=== PATIENT | female | born 1955 | race Caucasian/White ===

== ENCOUNTER 2016-11-04 09:40 | Outpatient (CLI) | payer OTHER | END 2016-11-04 23:00 | LOC: RT SRH 09:40 | DX: R53.83 Other fatigue (principal); I10 Essential (primary) hypertension ==

== ENCOUNTER 2016-11-09 09:59 | Outpatient (CLI) | payer OTHER ==
--- NOTE | 2016-11-09 13:04 | DIAGNOSTIC IMAGING REPORT ---
PROCEDURE: CT ABDOMEN W/WO CONTRAST CLINICAL INDICATION: LIVER LESION, follow-up TECHNIQUE: 125 ml of Isovue 300 were injected intravenously and axial images were obtained through the entire abdomen with sagittal and coronal reformations. Delayed images obtained. COMPARISON: [facility] CT chest 09/17/2015. FINDINGS: Stable and 2.5 cm lesion in the dome of the liver posteriorly demonstrating low density on the noncontrast images, peripheral enhancement on the arterial phase and isodense on the delayed images. Findings are most consistent with a benign hemangioma. There are a few hypo enhancing lesions measuring 5 mm or less, indeterminate but likely benign. 1.6 cm right adrenal mass measures -15 [place] so noncontrast images. The gallbladder, pancreas, spleen, left adrenal gland and kidneys are normal. Moderate hiatal hernia. Tortuous aorta. Nonspecific bowel gas pattern. Minor left basilar scarring. No suspicious osseous lesions. IMPRESSION: 1. 2.5 cm benign hemangioma in the hepatic dome posteriorly corresponding to the previous CT finding. 2. 1.6 cm right adrenal adenoma 3. Moderate hiatal hernia All CT scans at this facility use dose modulation, iterative reconstruction, and/or weight-based dosing when appropriate to reduce radiation dose to as low as reasonably achievable.
--- NOTE | 2016-11-09 14:16 | DIAGNOSTIC IMAGING REPORT ---
PROCEDURE: 2-D M-mode echo Doppler. CLINICAL INDICATION: Shortness of breath TECHNIQUE: Standard 2-D M-mode echo Doppler technique COMPARISON: None available FINDINGS: Left Ventricular ejection function is normal with an ejection fraction of 64% with normal contraction. Grade 1 diastolic dysfunction seen The right ventricle is mildly increased in size with a RVSP 40 with normal function. Left and right atrial dimensions are mildly increased in size.The aortic root is mildly increased in size of 3.8 cm no abnormalities of the pericardium are seen. The aortic valve is normal without stenosis or insufficiency the mitral valve exhibits trace to 1+ MR the tricuspid valve exhibits 1+ TR with RVSP 40 pulmonic valve is normal IMPRESSION: Left ventricular ejection fraction 64% with normal contraction Mild RVE with RVSP elevated and 40 mmHg Trace to 1+ MR 1+ TR with RVSP 40 Mild aortic root enlargement measuring 3.8 cm Mild biatrial enlargement
== END 2016-11-09 23:00 ==
LOC: US SRH 09:59 → CT SRH 12:00 → US SRH 23:00
DX: D18.09 Hemangioma of other sites (principal); D35.01 Benign neoplasm of right adrenal gland; K44.9 Diaphragmatic hernia without obstruction or gangrene; I51.7 Cardiomegaly
CPT/HCPCS: 90047; 90074